=== PATIENT | male | born 1995 | race Two or more races ===

== ENCOUNTER 2025-06-12 03:40 | Emergency (ER) | payer MEDICAID, SELFPAY ==
[2025-06-12 03:42] VITALS: BMI 43.5
[2025-06-12 03:54] VITALS: BP 135/71; PULSE 98; RESP 19; TEMP 36.8; O2SAT 99
[2025-06-12] MEDS: cefTRIAXone 1,000 MG, LIDOCAINE 1% 20 ML 2.1 ML IM (04:47)
[2025-06-12] MEDS: FLUCONAZOLE 150 MG TABLET PO (04:47)
[2025-06-12] MEDS: AZITHROMYCIN 250 MG TABLET 1000 MG PO (04:47)
--- NOTE | 2025-06-12 04:59 | PD.EDMALE ---
ED Male Genitalurinary RME/HPI General Chief complaint: General Adult/Misc Complain Stated complaint: DISCHARGE FROM PENIS Time Seen by Provider: 06/12/25 04:29 Arrival date/time: 06/12/25 03:40 30M with no significant PMH presents to ED with several days of penile discharge and pain at head of penis. Patient recently got out of shelter and had intercourse with his significant other. Limitations: no limitations Related Data Home Medications ?Medication ?Instructions ?Recorded ?Confirmed No Known Home Medications 08/13/19 02/24/20 Allergies Allergy/AdvReac Type Severity Reaction Status Date / Time No Known Allergies Allergy Verified 06/12/25 03:46 Review of Systems Review of Systems Systems Reviewed: All systems reviewed, normal except as documented Constitutional Constitutional: Reports system reviewed and no additional complaints, except as documented, Denies fever(s) and Denies headache(s) ENT Ears, Nose, Mouth, and Throat: Denies disequilibrium and Denies headache(s) Cardiovascular Cardiovascular: Reports system reviewed and no additional complaints, except as documented, Denies chest pain and Denies dyspnea Respiratory Respiratory: Reports system reviewed and no additional complaints, except as documented, Denies cough and Denies dyspnea Gastrointestinal Gastrointestinal: Reports system reviewed and no additional complaints, except as documented, Denies abdominal pain, Denies nausea and Denies vomiting Genitourinary Genitourinary: Reports as per HPI and Reports penile discharge Neurologic Neurologic: Reports system reviewed and no additional complaints, except as documented, Denies confusion, Denies disequilibrium and Denies headache(s) Psychiatric Psychiatric: Denies confusion Past Medical History Past Medical History CARDIAC: Negative Congestive Heart Failure RESPIRATORY: Negative Chronic Obstructive Pulmonary Disease (COPD) GENITOURINARY: Negative Renal Disease ENDOCRINE: Negative Diabetes Mellitus Type 1 or Diabetes Mellitus Type 2 Social History SMOKING STATUS: Current every day smoker ED Exam General Limitations: Present no limitations General appearance: Present alert and in no apparent distress Head Head exam: Present atraumatic Eye Eye exam: Present normal appearance, PERRL and EOMI ENT ENT exam: Present normal exam, normal oropharynx and mucous membranes moist Neck Neck exam: Present normal inspection, full ROM and trachea midline Chest Chest inspection: Present normal inspection and symmetric chest wall rise Respiratory Respiratory exam: Present normal lung sounds bilaterally Cardiovascular Cardiovascular exam: Present regular rate, normal rhythm and normal heart sounds Abdominal Exam Abdominal exam: Present soft and normal bowel sounds exam: Present urethral discharge Expanded Exam exam: Present balanitis Extremities Exam Extremities exam: Present normal inspection and full ROM Back Exam Back exam: Present normal inspection and full ROM Neurological Exam Neurological exam: Present alert, oriented X3 and CN II-XII intact Psychiatric Psychiatric exam: Present normal affect and normal mood Skin Skin exam: Present warm, dry, intact and normal color Course Quality Measures none Orders Category Date Time Status Chlamydia/GC/TV - PCR Stat Lab 06/12/25 Ordered Azithromycin Po [Zithromax PO] Med 06/12/25 04:30 Discontinued 1,000 mg PO X1 ONE Fluconazole [Diflucan] Med 06/12/25 04:30 Discontinued 150 mg PO X1 ONE cefTRIAXone [Rocephin] 1,000 mg Med 06/12/25 04:30 Discontinued Lidocaine 1% 20 ml [Xylocaine 1% 20 ML] 2.1 ml IM X1 Vital Signs Vital signs: Vital Signs Temperature 98.2 F 06/12/25 03:54 Pulse Rate 98 06/12/25 03:54 Respiratory Rate 19 06/12/25 03:54 Blood Pressure 135/71 H 06/12/25 03:54 Pulse Oximetry (%) 99 06/12/25 03:54 Oxygen Delivery Method Room Air 06/12/25 03:54 O2 at 99% on RA and WNLs Urogenital - Male MDM Narrative MDM Narrative:: 30M with no significant PMH presents to ED with several days of penile discharge and pain at head of penis. Patient recently got out of shelter and had intercourse with his significant other. 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 Foreskin is swollen but can be retracted and replaced. Patient is afebrile, alert, but anxious. Will treat empirically. Patient was unable/unwilling to provide urine sample. Patient was discharged w/o paperwork. Patient data External records reviewed:: [facility] previous records Clinical information provided by:: patient Social determinants that could affect healthcare access:: substance use Patient has the following chronic illnesses:: none How is presenting disease/condition affected by chronic disease/condition?: no chronic disease Evaluation data The following diagnostics were reviewed and interpreted by me:: lab results Lab and/or radiology exams considered but not ordered:: ordered Interpretation Summary: above Medications / Prescriptions Medications or Prescriptions considered but not ordered:: ordered Medication administrations:: Medication Administration History Discontinued Medications Azithromycin (Azithromycin 250 Mg Tablet) 1,000 mg PO X1 ONE Stop: 06/12/25 04:31 Last Admin: 06/12/25 04:47 Dose: 1,000 mg Documented By: LORRIE Ceftriaxone Sodium 1,000 mg/ (Lidocaine HCl 2.1 ml) 0 mg IM X1 ONE Stop: 06/12/25 04:31 Last Admin: 06/12/25 04:47 Dose: 1,000 mg Documented By: LORRIE Fluconazole (Fluconazole 150 Mg Tablet) 150 mg PO X1 ONE Stop: 06/12/25 04:31 Last Admin: 06/12/25 04:47 Dose: 150 mg Documented By: LORRIE above Consultations Consultation(s) initiated? (list below): No Diagnosis Urogenital Male Differential Diagnosis: urinary tract infection, priapism, urethritis, epididymitis, genital herpes simplex, prostatitis, acute retention of urine, inguinal hernia and other (balanitis, concern for STD in male w/o diagnosis) Most likely diagnosis given after review of the tests above:: concern about STD in male w/o diagnosis and balanitis Admission Indicated Admission indicated?: not indicated Admission Request Was there a request for admission?: No Disposition Plan Disposition Plan: other (specify) (discharged w/o paperwork) Discharge Plan Plan Patient Disposition: HOME (Self Care) Discharge Disposition comment: Stable Prescriptions/Referrals Prescriptions/Med Rec: No Action No Known Home Medications Problem List Clinical Impression: Balanitis, Concern about STD in male without diagnosis Patient/Caregiver Discharge Instructions Education Materials: ED Balanitis Print Language: Belarusian Stand Alone Forms: Ashwini Award Info., Patient Portal Info Letter PA/HUSEYIN Supervising Physician LYNDSEY/HUSEYIN Supervising Physician: Dr. Coto
== END 2025-06-12 05:55 | disposition home or self-care (01) ==
LOC: SERX 06:05
PROVIDERS: Emergency Provider Emergency Medicine
DX: Z20.2 Contact with and (suspected) exposure to infections with a predominantly sexual mode of transmission (principal); N48.1 Balanitis
CPT/HCPCS: 81001; 87491; 87591; 87661; 96372; 99283; J0696; J3490; A9270

== ENCOUNTER 2025-06-14 10:10 | Emergency (ER) | payer MEDICAID, SELFPAY ==
[2025-06-14 10:38] VITALS: BP 139/82; PULSE 116; RESP 28; TEMP 37.2; O2SAT 100; BMI 28.0
--- NOTE | 2025-06-14 11:07 | PD.EDMEDCL ---
ED Medical Clearance RME/HPI General Chief complaint: Medical Clearance Stated complaint: MEDICAL CLEARANCE Time Seen by Provider: 06/14/25 10:49 Arrival date/time: 06/14/25 10:10 RME / HPI RME / HPI Narrative: DR. MOURA MAIN ED EVALUATION: 30-year-old male presents to the Emergency Department for medical clearance for incarceration. He reports no current complaints. Per staff, patient is noted to be agitated. History is significant for prior marijuana and alcohol use. Related Information Home Medications ?Medication ?Instructions ?Recorded ?Confirmed No Known Home Medications 08/13/19 02/24/20 Allergies Allergy/AdvReac Type Severity Reaction Status Date / Time No Known Allergies Allergy Verified 06/14/25 10:42 Review of Systems Review of Systems Systems Reviewed: All systems reviewed, normal except as documented Past Medical History Social History SMOKING STATUS: Current every day smoker ED Exam Narrative Physical exam: GENERAL APPEARANCE:? alert and oriented x 4, well-developed, well-nourished, no acute distress; sitting up with hands cuffed to the back; agitated and seems under the influence of something HEENT: normocephalic, atraumatic NECK: supple LUNGS: no respiratory distress, normal effort HEART: good peripheral perfusion ABDOMEN: non distended EXTREMITIES:? atraumatic NEUROLOGIC: awake; alert and oriented x4; cranial nerves II-XII grossly intact PSYCHIATRIC:? agitated SKIN: warm, dry, normal color; no rashes Course Quality Measures none Vital Signs Vital signs: Vital Signs Temperature 98.9 F 06/14/25 10:38 Pulse Rate 116 H 06/14/25 10:38 Respiratory Rate 28 H 06/14/25 10:38 Blood Pressure 139/82 H 06/14/25 10:38 Pulse Oximetry (%) 100 06/14/25 10:38 Oxygen Delivery Method Room Air 06/14/25 10:38 Medical Clearance MDM Narrative [facility] Narrative:: Cherie Allen am scribing for and in the presence of Dr. Moura. Patient data External records reviewed:: [facility] previous records Clinical information provided by:: patient and law enforcement Social determinants that could affect healthcare access:: substance use Patient has the following chronic illnesses:: Denies any PMHx, surgeries, daily medications, or known allergies. How is presenting disease/condition affected by chronic disease/condition?: no chronic disease Evaluation data The following diagnostics were reviewed and interpreted by me:: other (specify) (none) Lab and/or radiology exams considered but not ordered:: none Interpretation Summary: n/a Medications / Prescriptions Medications or Prescriptions considered but not ordered:: none Medication administrations:: none Consultations Consultation(s) initiated? (list below): No Diagnosis Medical Clearance Differential Diagnosis: other (substance intoxication or withdrawal, acute agitation secondary to situational stress, underlying psychiatric disorder) Most likely diagnosis given after review of the tests above:: Medical clearance for incarceration Restlessness and agitation Admission Indicated Admission indicated?: not indicated Admission Request Was there a request for admission?: No Disposition Plan Disposition Plan: Discharge (Assisted) Discharge Attestation Discharge Attestation: The patient and all family members were given an opportunity to ask questions and understood the discharge instructions. Discharge instructions specifically effects, indications for sooner follow up or return to the emergency department, and the expected course of current diagnosis. Patient condition: Stable Discharge Plan Plan Patient Disposition: Assisted/Court/Law Discharge Disposition comment: Okay to book Prescriptions/Referrals Prescriptions/Med Rec: No Action No Known Home Medications Problem List Clinical Impression: Medical clearance for incarceration, Restlessness and agitation Patient/Caregiver Discharge Instructions Print Language: Venezuelan
== END 2025-06-14 11:39 ==
PROVIDERS: Emergency Provider Emergency Medicine
DX: Z02.89 Encounter for other administrative examinations (principal); R45.1 Restlessness and agitation
CPT/HCPCS: 99283